=== PATIENT | male | born 1960 | race Caucasian/White ===

== ENCOUNTER 2019-04-09 13:41 | Emergency (ER) | payer MEDICAID, OTHER ==
[~2019-04-09] VITALS: Ht 175.3 cm; Wt 72.7 kg
[2019-04-09 13:59] VITALS: BP 140/80
[2019-04-09] MEDS ORDERED: ketorolac trometh inj. 60 MG/2 ML VIAL IM ONE (15:00)
[2019-04-09] MEDS ORDERED: HYDROcodone/acetaminophen 5mg/325mg tablet PO ONE (15:05)
[2019-04-09] MEDS ORDERED: ondansetron 4mg rapidly disintigrating tab PO ONE (15:05)
== END 2019-04-09 15:46 | disposition home or self-care (01) ==
LOC: ER 13:41
DX: S82.092A Other fracture of left patella, initial encounter for closed fracture (principal); W18.09XA Striking against other object with subsequent fall, initial encounter; Y93.89 Activity, other specified; Y92.89 Other specified places as the place of occurrence of the external cause; Y99.9 Unspecified external cause status
CPT/HCPCS: 29505; 73564; 96372; 99284; J1885

== ENCOUNTER 2020-08-17 11:41 | Emergency (ER) | payer MEDICAID, OTHER ==
[~2020-08-17] VITALS: Ht 175.3 cm; Wt 75.0 kg
[2020-08-17] MEDS ORDERED: proparacaine 0.5% ophthalmic drops 15ml EACHEYE ONE (11:50)
[2020-08-17 12:15] VITALS: BP 148/78
[2020-08-17] MEDS ORDERED: erythromycin ophthalmic ointment 1gm tube RIGHTEYE ONE (13:30)
[2020-08-17] MEDS ORDERED: ACET-1025 PO (13:37)
[2020-08-17] MEDS ORDERED: ERYT1OIN6 RIGHTEYE (13:37)
== END 2020-08-17 14:09 | disposition home or self-care (01) ==
LOC: ER 11:41
DX: H10.31 Unspecified acute conjunctivitis, right eye (principal)
CPT/HCPCS: 99283